=== PATIENT | male | born 1935 | race Hispanic/Latino ===

== ENCOUNTER 2017-02-26 02:52 | Emergency (ER) | payer MEDICARE, OTHER ==
--- NOTE | 2017-02-26 03:08 | ED PDOC ---
Arrival/HPI - General Chief Complaint: Male Genitourinary Time Seen by Provider: 02/26/17 03:02 Historian: Patient - History of Present Illness Narrative History of Present Illness (Text): 02/26/17 03:05 Mendel Chery is an 81 year old male, whose past medical history includes bladder calculi, BPH, and hypertension, who presents to the ED complaining of urinary retention. Patient states he has been unable to void his urine since yesterday morning. Patient denies any abdominal pain, nausea, vomiting, dysuria , back pain, fever, chills, or any other complaints. PMD: Dr. Kang Symptom Onset: Gradual Symptom Course: Unchanged Activities at Onset: Rest, Light Context: Home Past Medical History - Provider Review Nursing Documentation Reviewed: Yes - Infectious Disease Hx of Infectious Diseases: None - Cardiac Hx Cardiac Disorders: Yes Hx Hypertension: Yes - Pulmonary Hx Respiratory Disorders: No - Neurological Hx Neurological Disorder: No - HEENT Hx HEENT Disorder: No - Renal Hx Renal Disorder: No - Endocrine/Metabolic Hx Endocrine Disorders: No - Hematological/Oncological Hx Blood Disorders: No - Integumentary Hx Dermatological Disorder: No - Musculoskeletal/Rheumatological Hx Musculoskeletal Disorders: No - Gastrointestinal Hx Gastrointestinal Disorders: No - Genitourinary/Gynecological Hx Genitourinary Disorders: Yes Hx Hematuria: Yes Hx Prostate Problems: Yes Other/Comment: bladder stones ---BPH - Psychiatric Hx Psychophysiologic Disorder: No Hx Substance Use: No - Surgical History Other/Comment: ingunial hernia repair---- multile cysto's - Anesthesia Hx Anesthesia Reactions: No Hx Malignant Hyperthermia: No - Suicidal Assessment Feels Threatened In Home Enviroment: No Family/Social History - Physician Review Nursing Documentation Reviewed: Yes Family/Social History: No Known Family HX Smoking Status: Never Smoked Hx Alcohol Use: Yes Hx Substance Use: No Allergies/Home Meds Allergies/Adverse Reactions: Allergies No Known Allergies Allergy (Verified 02/26/17 03:13) Home Medications: Home Meds Medication Instructions Recorded Confirmed Finasteride [Proscar] 5 mg PO DAILY 07/05/15 02/26/17 Potassium Citrate [Urocit-K] 15 meq PO BID 07/05/15 02/26/17 Beta-Carotene [Beta Carotene] 25,000 iu PO DAILY 02/26/17 02/26/17 Cyanocobalamin (Vitamin B-12) 500 mcg PO DAILY 02/26/17 02/26/17 [B-12] Tamsulosin HCl [Flomax] 0.4 mg PO DAILY 02/26/17 02/26/17 Valsartan/Hydrochlorothiazide 1 tab PO DAILY 02/26/17 02/26/17 [Valsartan-Hctz 160-25 mg Tab] Review of Systems - Physician Review All systems were reviewed & negative as marked: Yes - Review of Systems Constitutional: Normal. absent: Fevers Eyes: Normal ENT: Normal Respiratory: Normal. absent: SOB, Cough Cardiovascular: Normal. absent: Chest Pain Gastrointestinal: Normal. absent: Abdominal Pain, Diarrhea, Nausea, Vomiting Genitourinary Male: Urinary Output Changes (+urinary retention) Musculoskeletal: Normal. absent: Back Pain, Neck Pain Skin: Normal. absent: Rash Neurological: Normal. absent: Headache, Dizziness Endocrine: Normal Hemo/Lymphatic: Normal Psychiatric: Normal Physical Exam Vital Signs Reviewed: Yes Vital Signs Pulse Resp BP Pulse Ox 02/26/17 05:22 67 18 150/74 98 Temperature: Afebrile Blood Pressure: Normal Pulse: Regular Respiratory Rate: Normal Appearance: Positive for: Well-Appearing, Non-Toxic, Comfortable Pain Distress: None Mental Status: Positive for: Alert and Oriented X 3 - Systems Exam Head: Present: Atraumatic, Normocephalic Pupils: Present: PERRL Extroacular Muscles: Present: EOMI Conjunctiva: Present: Normal Mouth: Present: Moist Mucous Membranes Neck: Present: Normal Range of Motion Respiratory/Chest: Present: Clear to Auscultation, Good Air Exchange. No: Respiratory Distress, Accessory Muscle Use Cardiovascular: Present: Regular Rate and Rhythm, Normal S1, S2. No: Murmurs Abdomen: Present: Normal Bowel Sounds. No: Tenderness, Distention, Peritoneal Signs Upper Extremity: Present: Normal Inspection. No: Cyanosis, Edema Lower Extremity: Present: Normal Inspection. No: Edema Neurological: Present: GCS=15, CN II-XII Intact, Speech Normal Skin: Present: Warm, Dry, Normal Color. No: Rashes Psychiatric: Present: Alert, Oriented x 3, Normal Insight, Normal Concentration Medical Decision Making ED Course and Treatment: 02/26/17 03:05 Impression: 81 y/o male c/o urinary retention. Differential Diagnosis included but are not limited to: urinary retention Plan: -- Vicente placement -- Reassess and disposition Progress Notes: 02/26/17 03:17 PROCEDURE: Vicente Catheter Placement Performed by the emergency provider Consent: Informed consent, after discussion of the risks, benefits, and alternatives to the procedure was obtained. Timeout: A timeout to verify the correct patient, procedure, and site was performed. Indication: Urinary retention Preparation: Hand hygiene performed. The area prepped and draped in the usual sterile fashion and was cleansed. Vicente Catheter Size: 16 [place] Post-procedure: The patient tolerated the procedure well with no immediate complications. Vicente draining urine without difficulty. - Scribe Statement The provider has reviewed the documentation as recorded by the Brian Sierra Provider Attestation: All medical record entries made by the Devenibcaleb were at my direction and personally dictated by me. I have reviewed the chart and agree that the record accurately reflects my personal performance of the history, physical exam, medical decision making, and the department course for this patient. I have also personally directed, reviewed, and agree with the discharge instructions and disposition. Disposition/Present on Arrival - Present on Arrival Any Indicators Present on Arrival: No History of DVT/PE: No History of Uncontrolled Diabetes: No Urinary Catheter: Yes History Surgical Site Infection Following: None - Disposition Have Diagnosis and Disposition been Completed?: Yes Diagnosis: Urinary retention Disposition: HOME/ ROUTINE Disposition Time: 04:40 Condition: GOOD Discharge Instructions (ExitCare): Urinary Retention in Men (ED) Additional Instructions: Mr. Chery, thank you for letting us take care of you today. You were treated for urinary retention. The emergency medical care you received today was directed at your acute symptoms. If you were prescribed any medication, please fill it and take as directed. It may take several days for your symptoms to resolve. Return to the Emergency Department if your symptoms worsen, do not improve, or if you have any other problems. Please contact your doctor or call one of the physicians/clinics you have been referred to that are listed on the Patient Visit Information form that is included in your discharge packet. Bring any paperwork you were given at discharge with you along with any medications you are taking to your follow up visit. Our treatment cannot replace ongoing medical care by a primary care provider (PCP) outside of the emergency department. Thank you for allowing the [facility] team to be part of your care today. If you had a blood, urine, or wound culture: It will take several days for the results, if any change in treatment is needed we will contact you. Prescriptions: Cephalexin [Keflex] 500 mg PO BID #14 capsule
[2017-02-26 03:10] VITALS: BMI 29.8
[2017-02-26 05:22] VITALS: BP 150/74; PULSE 67; RESP 18; O2SAT 98
== END 2017-02-26 05:22 | disposition home or self-care (01) ==
LOC: ED 02:52
DX: R33.9 Retention of urine, unspecified (principal)

== ENCOUNTER 2017-08-22 15:20 | Emergency (ER) | payer MEDICARE, OTHER ==
[2017-08-22 15:21] VITALS: BMI 29.8
[2017-08-22 15:30] VITALS: TEMP 97.7
[2017-08-22] MEDS ORDERED: Sodium Chloride 0.9% 1,000 ML IV STA (15:43)
--- NOTE | 2017-08-22 15:47 | ED PDOC ---
Arrival/HPI - General Chief Complaint: GI Problem Time Seen by Provider: 08/22/17 15:22 Historian: Patient - History of Present Illness Time/Duration: Other (4 days) Symptom Onset: Gradual Symptom Course: Unchanged Severity Level: Mild Activities at Onset: Rest Associated Symptoms (Text): 08/22/17 15:44 4 days prior to arrival patient reports that he ate a meal of hot dogs and sausage out at a restaurant. Following this he lost his appetite became nauseous intermittent vomiting with no diarrhea. He had some right upper quadrant pain which has since resolved. No fever or chills. No cough congestion or URI. No injury or trauma. There is poor by mouth intake. No chest pain palpitations or dyspnea. He has never experienced this previously Past Medical History - Infectious Disease Hx of Infectious Diseases: None - Cardiac Hx Cardiac Disorders: Yes Hx Hypertension: Yes - Pulmonary Hx Respiratory Disorders: No - Neurological Hx Neurological Disorder: No - HEENT Hx HEENT Disorder: No - Renal Hx Renal Disorder: No - Endocrine/Metabolic Hx Endocrine Disorders: No - Hematological/Oncological Hx Blood Disorders: No - Integumentary Hx Dermatological Disorder: No - Musculoskeletal/Rheumatological Hx Musculoskeletal Disorders: No - Gastrointestinal Hx Gastrointestinal Disorders: No - Genitourinary/Gynecological Hx Genitourinary Disorders: Yes Hx Hematuria: Yes Hx Prostate Problems: Yes Other/Comment: bladder stones ---BPH - Psychiatric Hx Psychophysiologic Disorder: No Hx Substance Use: No - Surgical History Other/Comment: ingunial hernia repair---- multile cysto's - Anesthesia Hx Anesthesia Reactions: No Hx Malignant Hyperthermia: No - Suicidal Assessment Feels Threatened In Home Enviroment: No Family/Social History - Physician Review Nursing Documentation Reviewed: Yes Family/Social History: Unknown Family HX Smoking Status: Never Smoked Hx Alcohol Use: Yes Hx Substance Use: No Allergies/Home Meds Allergies/Adverse Reactions: Allergies No Known Allergies Allergy (Verified 02/26/17 03:13) Home Medications: Home Meds Medication Instructions Recorded Confirmed Finasteride [Proscar] 5 mg PO DAILY 07/05/15 08/22/17 Potassium Citrate [Urocit-K] 15 meq PO BID 07/05/15 08/22/17 Beta-Carotene [Beta Carotene] 25,000 iu PO DAILY 02/26/17 08/22/17 Cyanocobalamin (Vitamin B-12) 500 mcg PO DAILY 02/26/17 08/22/17 [B-12] Tamsulosin HCl [Flomax] 0.4 mg PO DAILY 02/26/17 08/22/17 Valsartan/Hydrochlorothiazide 1 tab PO DAILY 02/26/17 08/22/17 [Valsartan-Hctz 160-25 mg Tab] Review of Systems - Physician Review All systems were reviewed & negative as marked: Yes - Review of Systems Constitutional: Fatigue Respiratory: Normal. absent: SOB, Cough Cardiovascular: Normal. absent: Chest Pain, Palpitations, Syncope Gastrointestinal: Abdominal Pain, Nausea, Vomiting, Anorexia. absent: Constipation, Diarrhea Genitourinary Male: absent: Dysuria, Frequency, Hematuria Neurological: absent: Headache, Dizziness, Focal Weakness Physical Exam Vital Signs Temp Pulse Resp BP Pulse Ox 08/22/17 19:47 80 16 152/80 H 98 08/22/17 19:07 76 16 171/102 H 99 08/22/17 17:30 76 18 130/73 97 08/22/17 15:26 97.7 F 83 18 142/84 97 Temperature: Afebrile Blood Pressure: Normal Pulse: Regular Respiratory Rate: Normal Appearance: Positive for: Well-Appearing, Non-Toxic, Comfortable Pain Distress: None Mental Status: Positive for: Alert and Oriented X 3 - Systems Exam Head: Present: Atraumatic, Normocephalic Pupils: Present: PERRL Extroacular Muscles: Present: EOMI Conjunctiva: Present: Normal Mouth: Present: Moist Mucous Membranes Pharnyx: No: ERYTHEMA, EXUDATE, TONSILS ENLARGED Neck: Present: Normal Range of Motion Respiratory/Chest: Present: Clear to Auscultation, Good Air Exchange, Decreased Breath Sounds. No: Respiratory Distress, Accessory Muscle Use Cardiovascular: Present: Regular Rate and Rhythm, Normal S1, S2. No: Murmurs Abdomen: Present: Normal Bowel Sounds. No: Tenderness, Distention, Peritoneal Signs, Rebound, Guarding Upper Extremity: Present: Normal Inspection. No: Cyanosis, Edema Lower Extremity: Present: Normal Inspection. No: Edema Neurological: Present: GCS=15, CN II-XII Intact, Speech Normal, Motor Func Grossly Intact Skin: Present: Warm, Dry, Normal Color. No: Rashes Psychiatric: Present: Alert, Oriented x 3, Normal Insight, Normal Concentration Medical Decision Making ED Course and Treatment: 08/22/17 17:23 Symptoms improved after Zofran and IV fluids. 08/22/17 17:34 Patient is still pointing to the right side of his abdomen as to where the discomfort is. His abdomen remains soft and nontender with no guarding and no rebound. He does have a slight leukocytosis with nausea, and therefore CT scan of the abdomen and pelvis will be obtained to rule out appendicitis. 08/22/17 19:15 EKG shows normal sinus rhythm rate approximately [address] or T-wave changes 08/22/17 19:23 Discussed in detail with who will see the patient in his office in 2 days in the afternoon. He requests antibiotics and pain medication. Follow up in the ER as needed. 08/22/17 20:56 Ultrasound was unrevealing. No hydronephrosis or stones seen. CT scan of the abdomen and pelvis is read by the radiologist shows a 7 x 7 mm ureteral stone with obstruction. No mention of degree of hydronephrosis. - Lab Interpretations Lab Results: 08/22/17 16:13 08/22/17 16:13 Lab Results 08/22/17 16:13: Sodium 137, Potassium 3.7, Chloride 99, Carbon Dioxide 30, Anion Gap 13, BUN 27 H, Creatinine 1.4, Est GFR ( Amer) 59, Est GFR (Non- Af Amer) 49, Random Glucose 246 H, Calcium 9.1, Total Bilirubin 1.3, AST 19, ALT 31, Alkaline Phosphatase 69, Lactate Dehydrogenase 475, Total Creatine Kinase 70, Troponin I 0.04, Total Protein 7.5, Albumin 4.1, Globulin 3.4, Albumin/Globulin Ratio 1.2, Amylase 47, Lipase 55 08/22/17 16:13: Urine Color Yellow, Urine Appearance Sl cloudy, Urine pH 6.0, Ur Specific [place] >= 1.030, Urine Protein 100 H, Urine Glucose (UA) >=1000, Urine Ketones Negative, Urine Blood Moderate H, Urine Nitrate Negative, Urine Bilirubin Negative, Urine Urobilinogen 1.0 H, Ur Leukocyte Esterase Negative, Urine RBC 5 - 10, Urine WBC 0 - 2, Ur Epithelial Cells 1 - 3, Urine Bacteria Rare 08/22/17 16:13: PT 13.4 H, INR 1.22 H, APTT 27.2 08/22/17 16:13: WBC 12.9 H D, RBC 5.09, Hgb 15.7, Hct 45.8, MCV 90.0, MCH 30.8, MCHC 34.3, RDW 13.8, Plt Count 154, MPV 9.7, Gran % 84.0 H, Lymph % (Auto) 7.4 L , [place] % (Auto) 8.3 H, Eos % (Auto) 0.2 L, Baso % (Auto) 0.1, Gran # 10.85 H, Lymph # 1.0 L, [place] # 1.1 H, Eos # 0.0, Baso # 0.01 - RAD Interpretation Radiology Orders: 08/22/17 15:43 CHEST PORTABLE [RAD] Stat ABDOMEN COMPLETE [US] Stat 08/22/17 17:24 ABD & PELVIS W/O PO OR IV CONT [CT] Stat Chest one view shows no infiltrate effusion or cardiomegaly. 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 - Medication Orders Current Medication Orders: Discontinued Medications Sodium Chloride (Sodium Chloride 0.9%) 1,000 mls @ 100 mls/hr IV .Q10H STA Stop: 08/23/17 01:42 Last Admin: 08/22/17 16:15 Dose: 100 mls/hr eMAR Start Stop Document 08/22/17 16:15 [facility] (Rec: 08/22/17 16:15 [facility] [id number]) Intravenous Solution Start Date 08/22/17 Start Time 16:15 Ondansetron HCl (Zofran Inj) 4 mg IVP STAT STA Stop: 08/22/17 15:44 Last Admin: 08/22/17 16:15 Dose: 4 mg IVP Administration Document 08/22/17 16:15 [facility] (Rec: 08/22/17 16:15 [facility] [id number]) Charges for Administration # of IVP Administrations 1 Disposition/Present on Arrival - Present on Arrival Any Indicators Present on Arrival: No History of DVT/PE: No History of Uncontrolled Diabetes: No Urinary Catheter: Yes History of Decub. Ulcer: No History Surgical Site Infection Following: None - Disposition Have Diagnosis and Disposition been Completed?: Yes Diagnosis: Renal colic, Ureterolithiasis, Leukocytosis, Hematuria Disposition: HOME/ ROUTINE Disposition Time: 19:24 Patient Plan: Discharge Condition: GOOD Discharge Instructions (ExitCare): Renal Colic (ED) Additional Instructions: 's office Thursday08/24/2017. Follow-up in the ER as needed. Prescriptions: Sulfamethoxazole/Trimethoprim [Bactrim DS 800 mg-160 mg] 1 tab PO BID #20 tab oxyCODONE/Acetaminophen [Percocet 5/325 mg Tab] 1 ea PO Q6 #15 tab Ondansetron [Zofran Odt] 4 mg SL Q6 #20 odt Forms: [employer] (Lao)
[2017-08-22 16:41] LABS: BASO # 0.01 K/mm3 (0.0-2.0); BASO % 0.1 % (0.0-3.0); EOS % 0.2 % (1.5-5.0); GRAN # 10.85 (1.4-6.5); HEMATOCRIT 45.8 % (42.0-52.0); LYMPH % 7.4 % (22.0-35.0); MEAN CORPUSCULAR HEMOGLOBIN 30.8 pg (25.0-35.0); MEAN CORPUSCULAR HGB CONC 34.3 g/dl (31.0-37.0); MEAN PLATELET VOLUME 9.7 fl (7.0-11.0); MONO # 1.1 (0.1-0.6); MONO % 8.3 % (1.0-6.0); RED CELL DISTRIBUTION WIDTH 13.8 % (11.5-14.5); WHITE BLOOD COUNT 12.9 10^3/ul (4.5-11.0)
--- NOTE | 2017-08-22 16:42 | RAD ---
HISTORY: ap COMPARISON: 06/09/2015 FINDINGS: LUNGS: No active pulmonary disease. PLEURA: No significant pleural effusion identified, no pneumothorax apparent. CARDIOVASCULAR: Normal. OSSEOUS STRUCTURES: No significant abnormalities. VISUALIZED UPPER ABDOMEN: Normal. OTHER FINDINGS: None. IMPRESSION: No active disease.
[2017-08-22 16:44] LABS: URINE BILIRUBIN NEGATIVE (NEGATIVE); URINE BLOOD MODERATE (NEGATIVE); URINE GLUCOSE (UA) >=1000 mg/dL (NEGATIVE); URINE KETONE NEGATIVE (NEGATIVE); URINE LEUKOCYTE ESTERASE NEGATIVE Leu/uL (NEGATIVE); URINE PROTEIN 100 mg/dL (<30 mg/dL)
[2017-08-22 16:48] LABS: URINE APPEARANCE SL CLOUDY (CLEAR); URINE COLOR YELLOW (YELLOW)
[2017-08-22 16:50] LABS: INR 1.22 (0.93-1.08); PARTIAL THROMBOPLASTIN TIME 27.2 Seconds (25.1-36.5)
[2017-08-22 16:54] LABS: ALB/GLOB RATIO 1.2 (1.1-1.8); BILIRUBIN,TOTAL 1.3 mg/dL (0.2-1.3); CALCIUM 9.1 mg/dL (8.4-10.5); POTASSIUM 3.7 mmol/L (3.6-5.0); TOTAL PROTEIN 7.5 g/dL (5.8-8.3)
[2017-08-22 17:02] LABS: URINE BACTERIA RARE (NEG); URINE WBC 0 - 2 /hpf (0-6)
[2017-08-22 17:05] LABS: TROPONIN I 0.04 ng/mL
--- NOTE | 2017-08-22 17:20 | US ---
HISTORY: ap COMPARISON: None. TECHNIQUE: Sonographic evaluation of the abdomen. FINDINGS: LIVER: Measures 15.6 cm. Diffusely increased echogenicity of the liver parenchyma. Consistent with fatty infiltration. No mass. Normal hepatopetal portal venous flow. Smooth contour. GALLBLADDER: Unremarkable. No gallstones. COMMON BILE DUCT: Measures 4 mm. No stones. No dilatation. PANCREAS: Poorly visualized due to overlying bowel gas RIGHT KIDNEY: Measures 14.5cm. Normal cortical echogenicity. Upper pole cortical cyst, 6.4 x 6.3 x 6.7 cm. Mid renal cortical cyst, 2.1 x 2.0 x 2.0 cm. Lower pole parapelvic cyst 2.6 x 2.9 x 3.4 cm. Lower pole cortical cyst, 3.3 x 2.6 x 4.0 cm. No solid mass. No calculus or hydronephrosis LEFT KIDNEY: Measures 13.8cm. Normal cortical echogenicity. Upper pole cortical cyst, 4.0 x 3.5 x 4.9 cm and 2nd upper pole cyst 2.4 x 2.6 x 2.8 cm. Mid left renal cortical cyst, 4.1 x 4.1 x 5.8 cm. No solid mass. No calculus or hydronephrosis. SPLEEN: Mild splenomegaly. The spleen measures 13.7 cm in greatest dimension. AORTA: Obscured by bowel gas IVC: Obscured by bowel gas OTHER FINDINGS: None. IMPRESSION: Multiple bilateral simple renal cortical cysts. Fatty infiltration of the liver. Mild splenomegaly.
--- NOTE | 2017-08-22 18:59 | CT ---
EXAM: CT Abdomen and Pelvis Without Intravenous Contrast EXAM DATE/TIME: 08/22/2017 5:24 PM CLINICAL HISTORY: 82 years old, male; Pain; Abdominal pain; Other: Right sided abd pain TECHNIQUE: Axial computed tomography images of the abdomen and pelvis without intravenous contrast. All CT scans at this facility use one or more dose reduction techniques, viz.: automated exposure control; ma/kV adjustment per patient size (including targeted exams where dose is matched to indication; i.e. head); or iterative reconstruction technique. MIP reconstructed images were created and reviewed. Coronal and sagittal reformatted images were created and reviewed. COMPARISON: US - ABDOMEN COMPLETE 2017-08-22 16:30; CT abdomen pelvis 06/09/15 unavailable FINDINGS: Lower thorax: The heart is mildly enlarged. There is a hiatal hernia. Lung bases are hyperinflated. There is atelectasis/scarring at the lung bases. There is minimal pleural thickening. ABDOMEN: Liver: There is fatty infiltration of the liver. Gallbladder and bile ducts: unremarkable Pancreas: Pancreas is mildly atrophic. Spleen: unremarkable Adrenals: There are small bilateral adrenal nodules. Kidneys and ureters: There are multiple left renal cysts.. There is an 8mm hyperdense left lower pole peripheral lesion possibly hyperdense cyst. Left kidney and ureter are otherwise unremarkable. There are multiple right renal cysts. There are multiple tiny hyperdense right renal lesions which have hyperdense cysts. There are multiple nonobstructing right lower pole renal stones. There is obstructive uropathy on the there is a 7 x 7 mm obstructing right ureteral stone at the L4/L5 segmental level. Ureter distal to the stone is unremarkable. Stomach and bowel: Stomach is almost empty. Rotation is normal. There are mildly dilated air-filled small bowel loops in the left upper quadrant and left midabdomen. Distention increases distally. There is no small bowel obstruction. Ileocecal region is unremarkable. Appendix and terminal ileum are unremarkable.Streak and motion limits evaluation of the colon. There is diverticulosis. Appendix: See stomach and bowel PELVIS: Bladder: Bladder is partially distended. There is mild bladder wall thickening and trabeculation. There is a small stone in the dependent portion of the bladder on the left. There are small stones in the dependent/posterior bladder diverticula Reproductive: Prostate is enlarged. Seminal vesicles are unremarkable. ABDOMEN and PELVIS: Intraperitoneal space: There is a small amount of free fluid in the pelvis. There is no free air. Bones/joints: Bony structures are osteopenic.There are degenerative changes in the osseus structures. Disc disease is greatest at L4/L5. Soft tissues: There are bilateral fat-containing inguinal hernias. Vasculature: There are vascular calcifications. Lymph nodes: There is shotty adenopathy. IMPRESSION: 7 x 7 mm obstructing right ureteral stone at the L4/L5 segmental level, nonobstructing right lower pole renal stones; multiple bilateral renal cysts end probable bilateral tiny hyperdense cysts; fatty liver, mild pancreatic atrophy; small bilateral adrenal nodules most likely adenomas number; bladder wall thickening and trabeculation with diverticula and bladder stones; enlarged prostate; free fluid in the pelvis etiology unknown; no CT findings of appendicitis or diverticulitis; probable mild ileus Additional findings as described above.
[2017-08-22 19:07] VITALS: RESP 16
[2017-08-22 19:51] VITALS: BP 152/80; PULSE 80; O2SAT 98
--- NOTE | 2017-08-23 14:56 | CARD ---
APPROVED REPORT EKG Measurement Heart [id number] <Conclusion> Normal sinus rhythm Normal ECG
== END 2017-08-22 19:47 | disposition home or self-care (01) ==
LOC: ED 15:20
DX: N20.1 Calculus of ureter (principal); D72.829 Elevated white blood cell count, unspecified; R31.9 Hematuria, unspecified; I10 Essential (primary) hypertension
CPT/HCPCS: 71010; 74176; 76700; 80053; 81001; 82150; 82550; 83615; 83690; 84484; 85025; 85610; 85730; 87086; 93005; 96374; 99284; J2405; J7040

== ENCOUNTER 2017-08-25 09:06 | Inpatient (IN) | payer MEDICARE, OTHER ==
[2017-08-25 09:07] VITALS: BMI 29.8
[2017-08-25] MEDS ORDERED: Sodium Chloride 0.9% 1,000 ML IV STA (09:30)
[2017-08-25 10:08] LABS: BASO # 0.01 K/mm3 (0.0-2.0); BASO % 0.1 % (0.0-3.0); EOS % 0.4 % (1.5-5.0); GRAN # 6.23 (1.4-6.5); GRAN % 79.7 % (50.0-68.0); HEMATOCRIT 43.5 % (42.0-52.0); LYMPH # 0.8 (1.2-3.4); LYMPH % 10.8 % (22.0-35.0); MEAN CELL VOLUME 89.7 fl (80.0-105.0); MEAN CORPUSCULAR HEMOGLOBIN 30.5 pg (25.0-35.0); MEAN PLATELET VOLUME 9.4 fl (7.0-11.0); MONO # 0.7 (0.1-0.6); RED CELL DISTRIBUTION WIDTH 13.7 % (11.5-14.5); WHITE BLOOD COUNT 7.8 10^3/ul (4.5-11.0)
--- NOTE | 2017-08-25 10:08 | ED PDOC ---
Arrival/HPI - General Chief Complaint: Weakness/Neurological Deficit Time Seen by Provider: 08/25/17 09:08 Historian: Patient - History of Present Illness Narrative History of Present Illness (Text): 08/25/17 10:05 82yo male who present with complaint of positional dizziness and decreased appetite . He was seen here on the for abdominal pain, vomiting. Abdominal US and CT was negative with lab work. States he came to ED for a repeat blood work. He states he has been having dizziness for a while now, but it only became worse today. Dizziness is described as a spinning sensation whenever he stands up. He denies nausea, vomiting, diarrhea, tinnitus, focal weakness, headache, visual changes, chest pain, SOB, any other complaint. Past Medical History - Provider Review Nursing Documentation Reviewed: Yes - Infectious Disease Hx of Infectious Diseases: None - Cardiac Hx Cardiac Disorders: Yes Hx Hypertension: Yes - Pulmonary Hx Respiratory Disorders: No - Neurological Hx Neurological Disorder: No - HEENT Hx HEENT Disorder: No - Renal Hx Renal Disorder: No - Endocrine/Metabolic Hx Endocrine Disorders: No - Hematological/Oncological Hx Blood Disorders: No - Integumentary Hx Dermatological Disorder: No - Musculoskeletal/Rheumatological Hx Musculoskeletal Disorders: No - Gastrointestinal Hx Gastrointestinal Disorders: No - Genitourinary/Gynecological Hx Genitourinary Disorders: Yes Hx Hematuria: Yes Hx Prostate Problems: Yes Other/Comment: bladder stones ---BPH - Psychiatric Hx Psychophysiologic Disorder: No Hx Substance Use: No - Surgical History Other/Comment: ingunial hernia repair---- multile cysto's - Anesthesia Hx Anesthesia Reactions: No Hx Malignant Hyperthermia: No - Suicidal Assessment Feels Threatened In Home Enviroment: No Family/Social History - Physician Review Nursing Documentation Reviewed: Yes Family/Social History: Unknown Family HX Smoking Status: Never Smoked Hx Alcohol Use: Yes Hx Substance Use: No Allergies/Home Meds Allergies/Adverse Reactions: Allergies No Known Allergies Allergy (Verified 08/25/17 13:32) Home Medications: Home Meds Medication Instructions Recorded Confirmed Finasteride [Proscar] 5 mg PO DAILY 07/05/15 08/25/17 Potassium Citrate [Urocit-K] 15 meq PO BID 07/05/15 08/25/17 Beta-Carotene [Beta Carotene] 25,000 iu PO DAILY 02/26/17 08/25/17 Cyanocobalamin (Vitamin B-12) 500 mcg PO DAILY 02/26/17 08/25/17 [B-12] Tamsulosin HCl [Flomax] 0.4 mg PO DAILY 02/26/17 08/25/17 hydroCHLOROthiazide [Hydrodiuril] 25 mg PO DAILY 08/25/17 08/25/17 Review of Systems - Physician Review All systems were reviewed & negative as marked: Yes - Review of Systems Constitutional: Normal Eyes: Normal ENT: Normal Respiratory: Normal Cardiovascular: Normal Gastrointestinal: Normal Genitourinary Male: Normal Musculoskeletal: Normal Skin: Normal Neurological: Dizziness Endocrine: Normal Hemo/Lymphatic: Normal Psychiatric: Normal Physical Exam Vital Signs Reviewed: Yes Vital Signs Temp Pulse Resp BP Pulse Ox 08/25/17 13:24 98.1 F 60 16 161/79 H 99 08/25/17 12:25 59 L 18 154/83 H 98 08/25/17 11:04 58 L 16 168/85 H 97 08/25/17 09:17 98.7 F 67 16 156/80 H 98 Temperature: Afebrile Blood Pressure: Normal Pulse: Regular Respiratory Rate: Normal Appearance: Positive for: Well-Appearing, Non-Toxic, Comfortable Pain Distress: None Mental Status: Positive for: Alert and Oriented X 3 - Systems Exam Head: Present: Atraumatic, Normocephalic Pupils: Present: PERRL Extroacular Muscles: Present: EOMI Conjunctiva: Present: Normal Mouth: Present: Moist Mucous Membranes Neck: Present: Normal Range of Motion Respiratory/Chest: Present: Clear to Auscultation, Good Air Exchange. No: Respiratory Distress, Accessory Muscle Use Cardiovascular: Present: Regular Rate and Rhythm, Normal S1, S2. No: Murmurs Abdomen: Present: Normal Bowel Sounds. No: Tenderness, Distention, Peritoneal Signs Back: Present: Normal Inspection Upper Extremity: Present: Normal Inspection. No: Cyanosis, Edema Lower Extremity: Present: Normal Inspection. No: Edema Neurological: Present: GCS=15, CN II-XII Intact, Speech Normal, Motor Func Grossly Intact, Normal Sensory Function, Normal Cerebellar Funct, Norm Deep Tendon Reflexes, Gait Normal, Memory Normal, Normal 2Pt Descrimination, Other ( No focal neurological deficit) Skin: Present: Warm, Dry, Normal Color. No: Rashes Psychiatric: Present: Alert, Oriented x 3, Normal Insight, Normal Concentration Medical Decision Making ED Course and Treatment: 08/25/17 19:23 82yo male in ED for dizziness. EKG NSR with LVH @67bpm. Lab was nonspecific. Elevated BS was noted, previous lab from the also show elevated BS. PT denies history of diabetes and therefore is a new onset diabetic. Head Ct was negative for any acute finding. The daughter who was by the bedside expressed concern about the father's safety at home. Notes he lives alone with his disabled . Case was DW Dr. mojica and pt was admitted to [facility] for further evaluation of his dizziness and better glycemic control. - Lab Interpretations Lab Results: 08/25/17 09:52 08/25/17 09:52 Lab Results 08/25/17 10:00: Urine Color Yellow, Urine Appearance Clear, Urine pH 6.0, Ur Specific [place] 1.020, Urine Protein 30 H, Urine Glucose (UA) 500 H, Urine Ketones Negative, Urine Blood Large H, Urine Nitrate Negative, Urine Bilirubin Negative, Urine Urobilinogen 0.2, Ur Leukocyte Esterase Negative, Urine RBC 15 - 20, Urine WBC 2 - 5, Ur Epithelial Cells 0 - 2, Calcium Oxalate Crystal Occ, Urine Bacteria Few 08/25/17 09:52: Prostate Specific Ag 5.2 H 08/25/17 09:52: Sodium 137, Potassium 3.5 L, Chloride 100, Carbon Dioxide 29, Anion Gap 12, BUN 33 H, Creatinine 1.3, Est GFR ( Amer) > 60, Est GFR ( Non-Af Amer) 53, Random Glucose 228 H, Calcium 8.4, Magnesium 2.4 H, Total Bilirubin 1.0, AST 25, ALT 33, Alkaline Phosphatase 69, Lactate Dehydrogenase 433, Total Creatine Kinase 34 L, Troponin I 0.02 D, Total Protein 6.9, Albumin 3.6, Globulin 3.3, Albumin/Globulin Ratio 1.1, Lipase 135 08/25/17 09:52: PT 13.8 H, INR 1.25 H, APTT 25.0 L 08/25/17 09:52: WBC 7.8 D, RBC 4.85, Hgb 14.8, Hct 43.5, MCV 89.7, MCH 30.5, MCHC 34.0, RDW 13.7, Plt Count 150, MPV 9.4, Gran % 79.7 H, Lymph % (Auto) 10.8 L, [place] % (Auto) 9.0 H, Eos % (Auto) 0.4 L, Baso % (Auto) 0.1, Gran # 6.23, Lymph # 0.8 L, [place] # 0.7 H, Eos # 0.0, Baso # 0.01 - RAD Interpretation Radiology Orders: 08/25/17 09:29 HEAD W/O CONTRAST [CT] Stat - Medication Orders Current Medication Orders: Finasteride (Proscar) 5 mg PO DAILY PRASHANTH Hydrochlorothiazide (Hydrodiuril) 25 mg PO DAILY PRASHANTH Ceftriaxone Sodium (Rocephin 2 Gm Ivpb) 2 gm in 100 mls @ 100 mls/hr IVPB DAILY PRASHANTH PRN Reason: Protocol Oxycodone/Acetaminophen (Percocet 5/325 Mg Tab) 1 tab PO Q6 PRASHANTH Stop: 08/28/17 18:01 Tamsulosin HCl (Flomax) 0.4 mg PO DAILY PRASHANTH Discontinued Medications Sodium Chloride (Sodium Chloride 0.9%) 1,000 mls @ 999 mls/hr IV .Q1H1M STA Stop: 08/25/17 10:30 Last Admin: 08/25/17 09:53 Dose: 999 mls/hr eMAR Start Stop Document 08/25/17 09:53 MS (Rec: 08/25/17 09:54 MS [id number]) Intravenous Solution Start Date 08/25/17 Start Time 09:54 End Date 08/25/17 End time 10:54 Total Infusion Time 60 Insulin Human Regular (Humulin R) 3 units IV ONCE STA PRN Reason: Protocol Stop: 08/25/17 11:49 Last Admin: 08/25/17 12:15 Dose: 3 units eMAR Start Stop Document 08/25/17 12:15 MS (Rec: 08/25/17 12:19 MS [id number]) Intravenous Solution Start Date 08/25/17 Start Time 12:19 MAR Blood Glucose Document 08/25/17 12:15 MS (Rec: 08/25/17 12:19 MS [id number]) Blood Glucose Finger Stick Blood Glucose (70-120) 228 Meclizine HCl (Antivert) 25 mg PO STAT STA Stop: 08/25/17 09:32 Last Admin: 08/25/17 09:44 Dose: 25 mg Pneumococcal Polyvalent Vaccine (Pneumovax 23 Vaccine) 0.5 ml IM .ONCE ONE Stop: 08/25/17 15:37 Disposition/Present on Arrival - Present on Arrival Any Indicators Present on Arrival: No History of DVT/PE: No History of Uncontrolled Diabetes: No Urinary Catheter: Yes History of Decub. Ulcer: No History Surgical Site Infection Following: None - Disposition Have Diagnosis and Disposition been Completed?: Yes Diagnosis: Near syncope, Diabetes mellitus, new onset Disposition: HOSPITALIZED Disposition Time: 11:35 Patient Problems: Current Active Problems Problem Status Onset Diabetes mellitus, new onset Acute Near syncope Acute Condition: FAIR
[2017-08-25 10:16] LABS: ALB/GLOB RATIO 1.1 (1.1-1.8); ALKALINE PHOSPHATASE 69 U/L (38-126); ALT/SGPT 33 U/L (7-56); AST/SGOT 25 U/L (17-59); BLOOD UREA NITROGEN 33 mg/dL (7-21); CALCIUM 8.4 mg/dL (8.4-10.5); CARBON DIOXIDE 29 mmol/L (21-33); CHLORIDE 100 mmol/L (98-107); GFR AFRICAN-AMERICAN > 60; GLUCOSE,RANDOM 228 mg/dL (70-110); INR 1.25 (0.93-1.08); LIPASE 135 U/L (23-300); MAGNESIUM 2.4 mg/dL (1.7-2.2); POTASSIUM 3.5 mmol/L (3.6-5.0); SODIUM 137 mmol/L (132-148); TOTAL PROTEIN 6.9 g/dL (5.8-8.3)
[2017-08-25 10:26] LABS: TROPONIN I 0.02 ng/mL
[2017-08-25 10:26] LABS: URINE BILIRUBIN NEGATIVE (NEGATIVE); URINE BLOOD LARGE (NEGATIVE); URINE GLUCOSE (UA) 500 mg/dL (NEGATIVE); URINE KETONE NEGATIVE (NEGATIVE); URINE LEUKOCYTE ESTERASE NEGATIVE Leu/uL (NEGATIVE); URINE PROTEIN 30 mg/dL (<30 mg/dL); URINE UROBILINOGEN 0.2 E.U./dL (<1 E.U./dL)
[2017-08-25 10:29] LABS: URINE COLOR YELLOW (YELLOW)
--- NOTE | 2017-08-25 10:36 | CT ---
PROCEDURE: CT HEAD WITHOUT CONTRAST. HISTORY: dizziness COMPARISON: None available. TECHNIQUE: Axial computed tomography images were obtained through the head/brain without intravenous contrast. Radiation dose: Total exam DLP = 726 mGy-cm. This CT exam was performed using one or more of the following dose reduction techniques: Automated exposure control, adjustment of the mA and/or kV according to patient size, and/or use of iterative reconstruction technique. FINDINGS: HEMORRHAGE: No intracranial hemorrhage. BRAIN: No mass effect or edema. No atrophy or chronic microvascular ischemic changes. VENTRICLES: Unremarkable. No hydrocephalus. CALVARIUM: Unremarkable. PARANASAL SINUSES: Unremarkable as visualized. No significant inflammatory changes. MASTOID AIR CELLS: Unremarkable as visualized. No inflammatory changes. OTHER FINDINGS: None. IMPRESSION: No acute findings
[2017-08-25 10:41] LABS: URINE APPEARANCE CLEAR (CLEAR); URINE BACTERIA FEW (NEG); URINE CALCIUM OXALATE CRYSTALS OCC /hpf; URINE EPITHELIAL CELLS 0 - 2 /hpf (0-5); URINE RBC 15 - 20 /hpf (0-2)
[2017-08-25] MEDS ORDERED: Insulin Regular 1 UNITS/0.01 ML ML IV STA (11:48)
[2017-08-25] MEDS ORDERED: Influenza Vaccine 60 mcg/0.5 mL SYR (4YR UP) IM ONE (15:36)
[2017-08-25] MEDS ORDERED: Pneumococcal 23-Valent Vaccine IM ONE (15:36)
[2017-08-25] MEDS: cefTRIAXone 2 GM IN NS 2 GM/100 ML BAG IVPB SCH (20:17)
[2017-08-25] MEDS: Oxycodone/Acetaminophen 5/325 mg Tab PO SCH (21:17)
[2017-08-26] MEDS: Oxycodone/Acetaminophen 5/325 mg Tab PO SCH ×4 (00:21→20:56)
--- NOTE | 2017-08-26 00:24 | CON ---
GENITOURINARY CONSULTATION DATE: 08/25/2017 CHIEF COMPLAINT: Dizziness and spinning sensation. No nausea or vomiting. HISTORY OF PRESENT ILLNESS: The patient had a CAT scan done several days ago, which apparently showed an obstructing right ureteral calculus in the upper ureter with hydro. He currently has some very mild intermittent abdominal pain. No nausea or vomiting. No fever. No chills. He appears comfortable. His white count is normal and he is afebrile. The patient states he has not been eating for several days. PAST MEDICAL HISTORY: Hypertension, history of BPH with bladder stones, he has had a hernia repair, and multiple cystoscopies. SOCIAL HISTORY: He does not smoke. He does not use alcohol. FAMILY HISTORY: Noncontributory. ALLERGIES: HE HAS NO ALLERGIES. MEDICATIONS: At home, he is on Proscar, Urocit, Flomax, and HydroDIURIL. REVIEW OF SYSTEMS: Currently, no symptoms referable to the head, eyes, ears, nose and throat. No cardiac or respiratory symptoms. He appears comfortable with no GI symptoms at this time and no genitourinary symptoms. On questioning, he does have some occasional right-sided pain. No Psychiatric or Endocrine issues. He does have some dizziness. PHYSICAL EXAMINATION VITAL SIGNS: Shows him to be afebrile. Pulse 84, blood pressure 140/80, and respirations 20. HEENT: Normocephalic. Sclerae clear. Conjunctivae noninjected. CHEST: No CVA pain. No hepatosplenomegaly. ABDOMEN: No rebound or guarding. EXTREMITIES: No purpura edema. NEUROLOGIC: Alert and oriented x3. LABORATORY DATA: Shows a white count 7800, hemoglobin 14.8. Chemistry show a glucose of 170, creatinine 1.3 with a BUN of 33. His INR is 1.25. His urine has 2-5 WBCs and 15-20 RBCs. IMPRESSION: He has an obstructing upper ureteral calculus along with some non-obstructing calculi in the right kidney as well. The stone is on the right side. Given the history of not eating and being a diabetic, the patient should have a cystoscopy with stent placement to relieve the hydronephrosis and remove this as a possible cause of his symptoms, whether if this is the cause of his dizziness or not, I feel it has to be done to avoid the possibility of him becoming septic. He was put on 2 g of Rocephin. He will be kept n.p.o. after midnight. Dr. Kang, who has been seeing him in the office and was scheduled to see him tomorrow in the office and he is aware of the situation. I spoke with the family. I also spoke to Dr. Kang and he was calling the family as well to apprise them of what he intended to do tomorrow. Kevyn Naranjo MD
--- NOTE | 2017-08-26 00:34 | CON ---
DATE: 08/25/2017 REASON FOR CONSULTATION: Abdominal pain and vomiting. HISTORY OF PRESENT ILLNESS: This is an 82-year-old patient with past medical history of ureteric calculus, hypertension, hematuria, nephrolithiasis, presented with episodes of dizziness and nausea. The patient was in the ER about 3 days ago with abdominal pain and vomiting. The patient had an abdominal ultrasound and the CAT scan done. The patient found to have ureteric stone and the patient was discharged to be followed as an outpatient. The patient also complaints of episodes of nausea, vomiting before. GI consult was requested to evaluate. Denies any fever. OTHER PAST MEDICAL HISTORY: Significant as above. FAMILY HISTORY: Noncontributory. SOCIAL HISTORY: Denies smoking. Alcohol socially. REVIEW OF SYSTEMS: Positive as above. Main complaint is dizziness. PHYSICAL EXAMINATION: GENERAL: On examination, the patient is lying on the bed, not in acute distress. VITAL SIGNS: Temperature 98.1, blood pressure 161/71, pulse 60, O2 saturation 99%, respiratory rate 16. HEENT: Atraumatic and anicteric. NECK: Supple. HEART: S1 and S2 heard. LUNGS: Bilateral air entry present. ABDOMEN: Soft. There is no mass palpable. No tenderness. EXTREMITIES: No edema. No cyanosis. NEUROLOGIC: Alert, oriented, moves all the extremities. LABORATORY DATA: Hemoglobin 14.8, hematocrit 43.5, WBC 7.5, platelets 150. Chemistry is essentially unremarkable. Creatinine 1.3 and BUN 33. IMPRESSION: This is an 82-year-old patient with recently in the hospital with nausea, vomiting and abdominal discomfort and was found to have ureteric stone and the patient need to be worked up, had history of hematuria and kidney stones in the past. Plan to workup as an outpatient. Now presents with increased dizziness. Probably the likely cause for his symptoms could be related to the vertigo. GI symptoms, it is unclear should include peptic ulcer disease and gastroenteritis should be considered also a differential diagnosis. Ultrasound showed no stones. I would recommend empiric therapy with PPI. Soft diet. Other differential diagnosis also to include is the patient's diabetic could be gastroparesis. I would recommend soft diet, empiric therapy with PPI. Continue with present IV hydration and continue with present management. Thank you very much for allowing us to participate in the care of the patient. Guerita Guerrier MD
--- NOTE | 2017-08-26 07:40 | CARD ---
APPROVED REPORT EKG Measurement Heart [id number] <Conclusion> Normal sinus rhythm Moderate voltage criteria for LVH STTW changes c/w ischemia
[2017-08-26] MEDS ORDERED: Lactated Ringer's 1,000 ML IV SCH (07:45)
--- NOTE | 2017-08-26 08:03 | CP.PCM.CON ---
<Lucy Hand - Last Filed: 08/26/17 13:50> History of Present Illness - History of Present Illness History of Present Illness: Heme/onc consult note for Dr Garcia. Reason for consult: weight loss Patient is an 82 y/o Ethiopian Male with pmh of htn, new onset diabetes, BPH, vertigo recurrent renal and ureteral calculus whom initially presented to [facility] [place] 2 weeks ago with abdominal pin, and was found to have renal stones which was supposed to be managed as outpatient. Patient presented on 08/25/17 with dizziness and abdominal pain, along with nausea. Patient's abdominal pain was believed be be due to obstructing right ureteral calculus and is s/p cystoscopy and stent placement this morning. For the dizziness patient had normal Ct head, patient believes the dizziness is due to his longstanding vertigo. Heme/onc is being consulted due to weight loss. Upon interviewing patient, patient states he has been having issues with weight gain, especially in his abdominal region. States he had decreased appetite for 5 days due to the abdominal pain, however currently he feels like eating everything. Patient denies night sweats, fever, chills, no nausea at this moment. Denies vomiting, diarrhea, headache. Admits to dizziness when he turns his head abruptly. Denies cp, or sob. Denies any family history of cancer. PMH: htn, new onset diabetes, recurrent nephrolithiasis, dizziness, and BPH. PSH: Cystoscopy. FMH: Mom at age of 82 from urosepsis, dad at age of 83 from asthma complications, brother struggles with asthma/pneumonia, no family history of cancers. Social: no history of tobacco or illicit drug use. Used to drink wine occasionally, but nothing in the past few years. Ambulates unassisted, lives with his . Allergy: NKDA Home meds: please see EMR for full list. Review of Systems - Constitutional Constitutional: absent: Anorexia, Chills, Fatigue, Fever, Frequent Falls, Headache, Increased Appetite, Lethargy, Malaise, Night Sweats, Weight Loss, Weakness - EENT Eyes: absent: Blurred Vision Ears: Dizziness - Cardiovascular Cardiovascular: absent: Chest Pain, Chest Pain at Rest, Claudication, Diaphoresis, Dyspnea - Respiratory Respiratory: absent: Cough, Dyspnea, Hemoptysis, Dyspnea on Exertion, Wheezing, Snoring, Stridor - Gastrointestinal Gastrointestinal: absent: Abdominal Pain, Belching, Bloating, Constipation, Cramping, Diarrhea, Dysphagia, Excessive Flatus, Fecal Incontinence, Hematemesis , Hematochezia, Loose Stools, Nausea, Vomiting - Genitourinary Genitourinary: Hematuria. absent: Nocturia, Urinary Incontinence, Urinary Urgency - Musculoskeletal Musculoskeletal: absent: Arthralgias, Muscle Weakness, Stiffness - Integumentary Integumentary: absent: Acne, Pruritus, Rash - Neurological Neurological: Disequilibrium, Dizziness. absent: Abnormal Hearing, Confusion, Focal Weakness - Psychiatric Psychiatric: absent: Anxiety, Confusion - Endocrine Endocrine: Polydipsia, Polyphagia, Polyuria. absent: Fatigue, Palpitations - Hematologic/Lymphatic Hematologic: absent: Easy Bleeding Past Patient History - Infectious Disease Hx of Infectious Diseases: None - Tetanus Immunizations Tetanus Immunization: Unknown - Past Social History Smoking Status: Never Smoked Alcohol: None Drugs: Denies Home Situation {Lives}: With Family - CARDIAC Hx Cardiac Disorders: Yes Hx Hypertension: Yes - PULMONARY Hx Respiratory Disorders: No - NEUROLOGICAL Hx Neurological Disorder: No - HEENT Hx HEENT Problems: No - RENAL Hx Chronic Kidney Disease: No - ENDOCRINE/METABOLIC Hx Endocrine Disorders: No - HEMATOLOGICAL/ONCOLOGICAL Hx Blood Disorders: No - INTEGUMENTARY Hx Dermatological Problems: No - MUSCULOSKELETAL/RHEUMATOLOGICAL Hx Musculoskeletal Disorders: No - GASTROINTESTINAL Hx Gastrointestinal Disorders: No - GENITOURINARY/GYNECOLOGICAL Hx Genitourinary Disorders: Yes Hx Hematuria: Yes Hx Prostate Problems: Yes Other/Comment: bladder stones ---BPH - PSYCHIATRIC Hx Psychophysiologic Disorder: No Hx Substance Use: No - SURGICAL HISTORY Hx Surgeries: Yes - ANESTHESIA Hx Anesthesia Reactions: No Hx Malignant Hyperthermia: No Meds Home Medications: Home Medication List Medication Instructions Recorded Confirmed Type Blood Sugar Diagnostic [Blood 1 each MC TID 30 Days strip 08/27/17 Rx Glucose Test] Blood-Glucose Meter [Blood Glucose 1 each MC ONCE #1 each 08/27/17 Rx Meter] Ciprofloxacin [Cipro] 250 mg PO BID 4 Days #8 tab 08/27/17 Rx MetFORMIN [glucoPHAGE] 1,000 mg PO DAILY 30 Days tab 08/27/17 Rx Allergies/Adverse Reactions: Allergies Allergy/AdvReac Type Severity Reaction Status Date / Time No Known Allergies Allergy Verified 08/25/17 13:32 - Medications Medications: Current Medications Finasteride (Proscar) 5 mg PO DAILY [facility] Last Admin: 08/25/17 20:16 Dose: 5 mg Hydrochlorothiazide (Hydrodiuril) 25 mg PO DAILY [facility] Last Admin: 08/25/17 20:16 Dose: 25 mg Ceftriaxone Sodium (Rocephin 2 Gm Ivpb) 2 gm in 100 mls @ 100 mls/hr IVPB DAILY [facility] PRN Reason: Protocol Last Admin: 08/25/17 20:17 Dose: 100 mls/hr Lactated Ringer's (Lactated Ringer's) 1,000 mls @ 75 mls/hr IV .[id number] [facility] Stop: 08/26/17 09:46 Oxycodone/Acetaminophen (Percocet 5/325 Mg Tab) 1 tab PO Q6 [facility] Stop: 08/28/17 18:01 Last Admin: 08/26/17 00:21 Dose: Not Given Tamsulosin HCl (Flomax) 0.4 mg PO DAILY [facility] Last Admin: 08/25/17 20:17 Dose: 0.4 mg Physical Exam - Constitutional Appears: No Acute Distress, Younger Than Stated Age - Head Exam Head Exam: ATRAUMATIC, NORMAL INSPECTION, NORMOCEPHALIC - Eye Exam Eye Exam: EOMI, Normal appearance, PERRL. absent: Scleral icterus Pupil Exam: NORMAL ACCOMODATION, PERRL - ENT Exam ENT Exam: Mucous Membranes Moist, Normal Exam - Neck Exam Neck exam: Positive for: Normal Inspection - Respiratory Exam Respiratory Exam: Clear to Auscultation Bilateral, NORMAL BREATHING PATTERN. absent: Rales, Rhonchi, Wheezes, Respiratory Distress, Stridor - Cardiovascular Exam Cardiovascular Exam: REGULAR RHYTHM, RRR, +S1, +S2. absent: Bradycardia, Tachycardia, Irregular Rhythm, Systolic Murmur - GI/Abdominal Exam GI & Abdominal Exam: Normal Bowel Sounds, Soft. absent: Distended, Firm, Guarding, Mass, Rigid, Tenderness Additional comments: Obese abdomen. - Extremities Exam Extremities exam: Positive for: normal inspection, pedal pulses present. Negative for: pedal edema, tenderness - Back Exam Back exam: NORMAL INSPECTION - Neurological Exam Neurological exam: Alert, Oriented x3, Reflexes Normal - Psychiatric Exam Psychiatric exam: Normal Affect, Normal Mood - Skin Skin Exam: Dry, Intact, Normal Color, Warm Results - Vital Signs Recent Vital Signs: Last Vital Signs Temp 98.3 F 08/26/17 06:26 Pulse 72 08/26/17 06:26 Resp 20 08/26/17 06:26 BP 136/70 08/26/17 06:26 Pulse Ox 98 08/26/17 06:26 - Labs Result Diagrams: 08/25/17 09:52 08/25/17 09:52 Labs: Laboratory Results - last 24 hr 08/25/17 08/25/17 15:51 21:47 POC Glucose (mg/dL) 170 H 310 H Assessment & Plan - Assessment and Plan (Free Text) Assessment: Patient is an 82 y/o Ethiopian Male with pmh of htn, new onset diabetes, BPH, vertigo recurrent renal and ureteral calculus admitted with vertigo and nephrolithiasis s/p cystoscopy and ureteral stent. Heme/onc is consulted for weight loss. Reviewed reports from patient's CT abdomen and pelvis from 08/22/17, patient had 7 x 7 mm obstructing right ureteral stone at the L4/L5 segmental level, nonobstructing right lower pole renal stones; multiple bilateral renal cysts end probable bilateral tiny hyperdense cysts; fatty liver, mild pancreatic atrophy; small bilateral adrenal nodules most likely adenomas number ; bladder wall thickening and trabeculation with diverticula and bladder stones ; enlarged prostate. Patient also had renal ultrasound from Multiple bilateral simple renal cysts. Multiple nonobstructing right lower pole renal calculi. Plan: - Transient loss of appetite likely due to abdominal pain from renal calculi. - Follow up with urology recommendations - No additional testing recommended at this time - No hematologic/oncology interventions at this time. - Thank you for consulting Dr Garcia. Patient seen, examined and case discussed with Dr Garcia. - Date & Time Date: 08/26/17 Time: 11:40 <Rhett Garcia P - Last Filed: 08/29/17 11:30> Results - Vital Signs Recent Vital Signs: Last Vital Signs Temp 98.8 F 08/27/17 06:00 Pulse 67 08/27/17 14:00 Resp 20 08/27/17 06:00 BP 138/76 08/27/17 06:00 Pulse Ox 97 08/27/17 06:00 - Labs Result Diagrams: 08/27/17 07:00 08/27/17 07:00 Attending/Attestation - Attestation I have personally seen and examined this patient.: Yes I have fully participated in the care of the patient.: Yes I have reviewed all pertinent clinical information: Yes
[2017-08-26] MEDS ORDERED: Iohexol 240 (50 ml) ONE (08:17)
[2017-08-26] MEDS ORDERED: cefTRIAXone (Rocephin) 1 gm Inj ONE (08:20)
[2017-08-26] MEDS ORDERED: Midazolam 2 MG/2 ML VIAL ONE (08:21)
[2017-08-26] MEDS ORDERED: Propofol 10 mg/ml Inj (20 ML) ONE (08:21)
--- NOTE | 2017-08-26 09:26 | RAD ---
PROCEDURE: Retrograde pyelogram HISTORY: STENT PLACEMENT COMPARISON: TECHNIQUE: Fluoroscopy was provided in the operating room. Eight images were submitted FINDINGS: The study shows placement of a right ureteral stent IMPRESSION: As above
--- NOTE | 2017-08-26 12:01 | HP ---
CHIEF COMPLAINT AND HISTORY OF PRESENT ILLNESS: This is an 82-year-old male who is coming into the hospital with decrease in appetite and dizziness. He was in the emergency room about 5 days ago. He had a CAT scan and blood work done, and he was discharged to follow with Dr. Naranjo. At that time, he had a stone that was seen. The patient continues to decline and came in yesterday for further evaluation. I spoke to the patient's daughter who updated me on the patient's condition. He has not been eating well. He has been complaining of abdominal pain. The patient had a history of nephrolithiasis, hypertension. He was taken to the OR by Dr. Naranjo and had a cystoscopy with a stent placement for obstructive uropathy. He is post-anesthesia, so I am not able to get full history. Most of the information was taken from the medical record and talking with the family. ALLERGIES: NO KNOWN DRUG ALLERGIES. HOME MEDICATIONS: Were reviewed on the [facility]. PAST MEDICAL HISTORY: Hypertension, BPH, nephrolithiasis. SOCIAL HISTORY: He does not smoke or use alcohol. FAMILY HISTORY: Noncontributory. PHYSICAL EXAMINATION: VITAL SIGNS: Temperature 98.5, pulse 64, blood pressure 119/63, O2 saturation 99%. Height is 5 feet 6 inches, weight is 185 pounds. BMI is 29.9. GENERAL: The patient lying in bed, uncomfortable, and in no acute distress. HEENT: Atraumatic and normocephalic. Anicteric sclerae. Moist mucosa. [place] conjunctivae. No oral lesions. NECK: No JVD, anterior and posterior adenopathy, thyromegaly, or bruits. CARDIOVASCULAR: S1 and S2 regular. No murmur, rubs, or gallop. LUNGS: Clear to auscultation bilaterally. No wheezes, rales, or rhonchi. ABDOMEN: Bowel sounds are positive. Soft, nontender and nondistended. No hepatosplenomegaly. No rebound and no guarding. EXTREMITIES: No cyanosis, clubbing, or edema. NEUROLOGIC: Unable to assess fully, but patient is able to move all 4 extremities. PSYCHIATRIC: Unable to assess the patient postop. GENITOURINARY: No CVA tenderness. VASCULAR: 2+ pulses in the carotid pulses and pedal pulses. SKIN: No erythema or nodules SPINE: Shows normal curvature. EXTREMITIES: No cyanosis and clubbing, no edema. LABORATORY DATA: White count is 7.8, hemoglobin is 14.8. Chemistry shows a sodium 137, potassium 3.5, creatinine is 1.3. INR is 1.25. Urine shows blood is large. Glucose is 500. The patient's CAT scan has been reviewed. ASSESSMENT: 1. Right kidney stone with obstruction. 2. Benign prostatic hyperplasia. 3. Abdominal pain. 4. Vomiting. 5. Hyperglycemia. PLAN: The patient is going to be admitted to the hospital. He is going to need physical therapy. I will also get a TCU evaluation. He is being followed by Dr. Lo, Dr. Garcia, Dr. Naranjo. The patient's family is asking about evaluation for malignancy. The patient is going to be on heart healthy diet. He is going to be on Percocet for pain. He is going to continue his Proscar. He is on Flomax for his BPH. We will continue to follow closely. Repeat blood work tomorrow. Drew Villalpando MD
[2017-08-26] MEDS ORDERED: POLYETHYLENE GLYCOL 3350 17 GM/Dose PACKET PO ONE (14:00)
--- NOTE | 2017-08-26 14:53 | CP.PCM.PN ---
<May Awad - Last Filed: 08/26/17 14:53> Subjective - Date & Time of Evaluation Date of Evaluation: 08/26/17 Time of Evaluation: 10:25 - Subjective Subjective: Seen and examined at the bedside earlier today, the patient is status post ureteral stent placement, patient family at bedside.. Patient denies nausea, vomiting, or abdominal pain. Abdomen is distended and reports feeling bloated, hasn't had a bowel movement for 3 days. Patient report passing gas. He tolerated food last night. No reports of overt GI bleed. Objective - Vital Signs/Intake and Output Vital Signs (last 24 hours): Temp Pulse Resp BP Pulse Ox 98.5 F 64 22 128/61 95 08/26/17 09:36 08/26/17 09:36 08/26/17 09:36 08/26/17 09:36 08/26/17 09:36 Intake and Output: 08/26/17 08/26/17 06:59 18:59 Intake Total 660 0 Output Total 500 Balance 160 0 - Medications Medications: Current Medications Finasteride (Proscar) 5 mg PO DAILY [facility] Last Admin: 08/26/17 10:16 Dose: 5 mg Hydrochlorothiazide (Hydrodiuril) 25 mg PO DAILY [facility] Last Admin: 08/26/17 10:16 Dose: 25 mg Ceftriaxone Sodium (Rocephin 2 Gm Ivpb) 2 gm in 100 mls @ 100 mls/hr IVPB DAILY [facility] PRN Reason: Protocol Last Admin: 08/25/17 20:17 Dose: 100 mls/hr Oxycodone/Acetaminophen (Percocet 5/325 Mg Tab) 1 tab PO Q6 [facility] Stop: 08/28/17 18:01 Last Admin: 08/26/17 12:00 Dose: 1 tab Tamsulosin HCl (Flomax) 0.4 mg PO DAILY [facility] Last Admin: 08/26/17 10:16 Dose: 0.4 mg - Labs Labs: PT 13.8 SECONDS (9.4-12.5) H 08/25/17 09:52 INR 1.25 (0.93-1.08) H 08/25/17 09:52 APTT 25.0 Seconds (25.1-36.5) L 08/25/17 09:52 - Constitutional Appears: No Acute Distress - Eye Exam Eye Exam: Normal appearance. absent: Scleral icterus - ENT Exam ENT Exam: Mucous Membranes Moist - Neck Exam Neck Exam: Normal Inspection - Respiratory Exam Respiratory Exam: NORMAL BREATHING PATTERN. absent: Respiratory Distress - Cardiovascular Exam Cardiovascular Exam: +S1, +S2 - GI/Abdominal Exam GI & Abdominal Exam: Distended, Soft, Normal Bowel Sounds. absent: Guarding, Tenderness, Organomegaly, Rebound - Extremities Exam Extremities Exam: absent: Calf Tenderness, Pedal Edema - Neurological Exam Neurological Exam: Alert, Awake, Oriented x3 - Skin Skin Exam: Dry, Warm Assessment and Plan - Assessment and Plan (Free Text) Assessment: Assessment: Abdominal pain now improved Nausea/vomiting, differentials to consider repeat peptic ulcer disease or gastroenteritis as differentials or gastroparesis Right kidney stone with obstruction, status post cystoscopy with ureteral stent placement History of BPH History of diabetes mellitus Constipation Plan: Diet as tolerated recommend soft low residual small meals Continue GI prophylaxis on PPI On IV hydration On IV antibiotics: ceftriaxone On Flomax Offered to give MiraLAX 1 dose, patient daughter at the bedside prefer patient to attempt to go naturally, discussion with family that MiraLAX is available if no BM this afternoon, spoke to nursing staff was at the bedside. Seen and discussed with Dr. Bello. <Guerita Guerrier V - Last Filed: 08/27/17 00:16> Objective - Vital Signs/Intake and Output Vital Signs (last 24 hours): Temp Pulse Resp BP Pulse Ox 97.5 F L 71 20 119/67 99 08/26/17 16:00 08/26/17 18:00 08/26/17 16:00 08/26/17 16:00 08/26/17 16:00 Intake and Output: 08/26/17 08/27/17 18:59 06:59 Intake Total 720 620 Balance 720 620 - Medications Medications: Current Medications Finasteride (Proscar) 5 mg PO DAILY [facility] Last Admin: 08/26/17 10:16 Dose: 5 mg Hydrochlorothiazide (Hydrodiuril) 25 mg PO DAILY [facility] Last Admin: 08/26/17 10:16 Dose: 25 mg Ceftriaxone Sodium (Rocephin 2 Gm Ivpb) 2 gm in 100 mls @ 100 mls/hr IVPB DAILY [facility] PRN Reason: Protocol Last Admin: 08/25/17 20:17 Dose: 100 mls/hr Insulin Human Regular (Humulin R Low) 0 units SC ACHS [facility] PRN Reason: Protocol Last Admin: 08/26/17 23:58 Dose: Not Given Metformin HCl (Glucophage) 1,000 mg PO DAILY [facility] Last Admin: 08/26/17 16:57 Dose: 1,000 mg Oxycodone/Acetaminophen (Percocet 5/325 Mg Tab) 1 tab PO Q6 [facility] Stop: 08/28/17 18:01 Last Admin: 08/26/17 20:56 Dose: Not Given Tamsulosin HCl (Flomax) 0.4 mg PO DAILY [facility] Last Admin: 08/26/17 10:16 Dose: 0.4 mg - Labs Labs: PT 13.8 SECONDS (9.4-12.5) H 08/25/17 09:52 INR 1.25 (0.93-1.08) H 08/25/17 09:52 APTT 25.0 Seconds (25.1-36.5) L 08/25/17 09:52 Attending/Attestation - Attestation I have personally seen and examined this patient.: Yes I have fully participated in the care of the patient.: Yes I have reviewed all pertinent clinical information, including history, physical exam and plan: Yes Notes (Text): this patient was seen and evaluated earlier. This is an addendum to the GE progress report dictated by Luz Elena Awad APN On examination abdomen soft nontender Status post cystoscopy and ureteric stent placement Tolerating diet Continue PPI Would consider EGD if the patient remains symptomatic of nausea and reduced by mouth intake 08/27/17 00:14
[2017-08-26] MEDS: Insulin Reg-LOW-Coverage SC SCH ×2 (16:55→23:58)
--- NOTE | 2017-08-26 18:52 | PN ---
DATE: 08/26/2017 The patient is status post placement of a right ureteral stent. He has been afebrile. Abdomen is benign. IMPRESSION AND PLAN: From a urologic standpoint, the patient can be discharged home if he is tolerating diet and is medically okay with regard to his nausea and vertigo. I would recommend the patient to be discharged home on oral antibiotics. He is to continue his tamsulosin and finasteride, and he should follow up with my office next week as he will need a procedure to remove the ureteral stone. Justin Kang MD
[2017-08-26 19:18] VITALS: RESP 20
[2017-08-27] MEDS: Oxycodone/Acetaminophen 5/325 mg Tab PO SCH ×3 (01:00→11:55)
[2017-08-27 07:26] LABS: ALKALINE PHOSPHATASE 56 U/L (38-126); ALT/SGPT 40 U/L (7-56); AST/SGOT 23 U/L (17-59); BILIRUBIN,TOTAL 0.6 mg/dL (0.2-1.3); BLOOD UREA NITROGEN 33 mg/dL (7-21); CALCIUM 8.2 mg/dL (8.4-10.5); CARBON DIOXIDE 29 mmol/L (21-33); CHLORIDE 101 mmol/L (98-107); GFR AFRICAN-AMERICAN > 60; GLUCOSE,RANDOM 195 mg/dL (70-110); POTASSIUM 3.3 mmol/L (3.6-5.0); SODIUM 136 mmol/L (132-148)
[2017-08-27 07:31] LABS: HEMATOCRIT 38.2 % (42.0-52.0); MEAN CELL VOLUME 89.9 fl (80.0-105.0); MEAN CORPUSCULAR HEMOGLOBIN 29.6 pg (25.0-35.0); MEAN PLATELET VOLUME 9.4 fl (7.0-11.0); RED CELL DISTRIBUTION WIDTH 13.9 % (11.5-14.5); WHITE BLOOD COUNT 5.4 10^3/ul (4.5-11.0)
[2017-08-27 07:48] VITALS: BP 138/76; TEMP 98.8; O2SAT 97
[2017-08-27] MEDS: Insulin Reg-LOW-Coverage SC SCH ×2 (08:16→11:55)
[2017-08-27] MEDS: cefTRIAXone 2 GM IN NS 2 GM/100 ML BAG IVPB SCH (10:28)
[2017-08-27] MEDS ORDERED: Potassium Chloride 20 mEq/15 ml LIQ UD PO STA (11:18)
[2017-08-27 14:10] VITALS: PULSE 67
--- NOTE | 2017-08-27 19:21 | PN ---
DATE: SUBJECTIVE: This patient was seen and evaluated earlier today. This patient is tolerating the diet, feels much better. PHYSICAL EXAMINATION: VITAL SIGNS: Temperature is 98.8, blood pressure 138/76, respirations 20 and O2 saturation 97%. HEENT: Atraumatic. Anicteric. NECK: Supple. HEART: S1 and S2 heard. LUNGS: Bilateral air entry present. ABDOMEN: Soft. There is no mass palpable, no tenderness. LABORATORY DATA: Hemoglobin 12.6, hematocrit 38.2, WBC 5.4 and platelets 147. Chemistry is essentially unremarkable except blood glucose and potassium 3.3, being supplemented. IMPRESSION: 1. This 82-year-old patient admitted with dizziness, nausea, vomiting, abdominal discomfort, status post ureteric stone status post stent placement. Clinically, feeling much improved. The patient's differential diagnosis of the abdominal discomfort should include gastroesophageal reflux disease, peptic ulcer disease, and gastroparesis. The patient is doing better now where they will continue the proton pump inhibitor. 2. Advance the diet to soft diet, chew well or a pureed diet. 3. The patient would benefit from the elective endoscopic evaluation. Thank you very much for allowing us to participate in the care of the patient. Guerita Guerrier MD
--- NOTE | 2017-08-28 04:54 | DS ---
HISTORY OF PRESENT ILLNESS: The patient is an 82-year-old seen and examined sitting in chair, complaining of feeling dizzy. He states he feels this like when he gets vertigo, otherwise he is doing well. PHYSICAL EXAMINATION: VITAL SIGNS: He is afebrile, pulse 57, respiration 20 and blood pressure 138/76. LUNGS: Bilateral fair airflow. No rhonchi or crackle. HEART: S1 and S2 audible. ABDOMEN: Soft and nontender. No rebound. No guarding. NEUROLOGIC: The patient is awake, alert, oriented, and communicative. Ambulatory. LABORATORY EXAMINATION: WBC 5.4, hemoglobin 12.6, hematocrit 38.2, and platelets 147. Chemistry: Sodium 136, potassium 3.3, chloride 101, CO of 29, BUN 33, creatinine 1.2 and blood sugar of 195. ASSESSMENT: 1. Status post right ureteral stent placement. 2. Urinary tract infection. 3. New onset [id number] diabetes. 4. Hypertension. 5. Chronic vertigo. 6. History of nephrolithiasis. 7. Benign prostatic hypertrophy. PLAN: Diabetic education is done. The patient is given prescription of metformin 500 twice a day. He is being given meclizine 25 mg, one dose stat. He was on Rocephin 2 g daily and that has been switched to Cipro 250 b.i.d. for 5 more days. He will follow up with PMD and he will follow with Dr. Naranjo for removal of stent later on. Luis Felipe Laurent MD
--- NOTE | 2017-08-28 08:16 | OP ---
PROCEDURE DATE: 08/26/2017 PREOPERATIVE DIAGNOSES: Right ureteral calculus and right hydronephrosis. POSTOPERATIVE DIAGNOSES: Right ureteral calculus and right hydronephrosis plus bladder stones. PROCEDURES: Cystoscopy, right retrograde pyelogram, insertion of right ureteral stent. ATTENDING SURGEON: Dr. Justin Kang. ANESTHESIA: General. SPECIMEN: There were none. DRAINS: A 6 x 26 right ureteral stent. COMPLICATIONS: None. OPERATIVE FINDINGS: After informed consent was obtained, the patient was taken to the operating room, placed on the operating table. Anesthesia was administered. The patient was placed in dorsal lithotomy position and prepped and draped in the usual sterile fashion. A 22-Mauritian cystoscope was placed in the patient's urethra and advanced proximally under direct vision until the bladder was entered. A full survey inspection of bladder was then performed, which revealed multiple small stones. There was few large diverticulum on the posterior wall grade 2 to 3 trabeculation. Both ureteral orifices were visualized and appeared within normal limits. Prostate was markedly enlarged and somewhat hypervascular. At this point, a Pollack catheter was introduced through the cystoscope and guided into the right ureteral orifice. When inside the orifice, contrast was instilled into the system during real-time fluoroscopy. There was a J hooking and dilatation of the distal ureter with an obstruction in the upper part of the distal ureter. Contrast could not be passed through this point. At this point, a Sensor wire was obtained. The Sensor wire was passed through the Pollack catheter into the right ureter. The wire was able to be advanced past the point of obstruction and the open-ended ureteral catheter was then able to be advanced over the wire. The wire was then removed and further contrast was instilled into the system. The mid and upper ureter were dilated. There was some moderate hydronephrosis. At this point, the wire was re-passed. It was guided up into the kidney under fluoroscopic guidance. The Pollack catheter was then removed. A 6 x 26 stent was then obtained. It was passed over the wire through the cystoscope and into the right ureter. The stent was advanced proximally under direct and fluoroscopic guidance until it was in the appropriate position. When the stent was then placed, the wire was removed. A coil was seen in the kidney on fluoroscopy. A coil was seen in the bladder on cystoscopy. At this point, the procedure was completed. The bladder was drained. The cystoscope was removed. The patient tolerated the procedure well and was taken to the recovery room awake in stable condition. Justin Kang MD
== END 2017-08-27 14:24 | disposition home or self-care (01) | DRG 694 ==
LOC: ED 09:06 → ERH 11:43 → 3RNO 13:48
PROVIDERS: ADMIT Internal Medicine Nephrology; ATTEND Internal Medicine Nephrology
PROC: 0T768DZ Dilation of Right Ureter with Intraluminal Device, Via Natural or Artificial Opening Endoscopic (ICD-10-PCS; principal; 2017-08-26 07:30)
DX: N13.2 Hydronephrosis with renal and ureteral calculous obstruction (principal); E11.65 Type 2 diabetes mellitus with hyperglycemia; K76.0 Fatty (change of) liver, not elsewhere classified; R42 Dizziness and giddiness; N39.0 Urinary tract infection, site not specified; I10 Essential (primary) hypertension; K59.00 Constipation, unspecified; N21.0 Calculus in bladder; N40.0 Benign prostatic hyperplasia without lower urinary tract symptoms; N28.1 Cyst of kidney, acquired; K86.89 Other specified diseases of pancreas; D35.02 Benign neoplasm of left adrenal gland; D35.01 Benign neoplasm of right adrenal gland; N32.3 Diverticulum of bladder; Z79.84 Long term (current) use of oral hypoglycemic drugs; Z79.899 Other long term (current) drug therapy; Z87.442 Personal history of urinary calculi

== ENCOUNTER 2017-12-21 07:14 | Day surgery (SDC) | payer MEDICARE, OTHER ==
[2017-12-21 08:07] VITALS: BMI 29.8
[2017-12-21] MEDS ORDERED: Iohexol 240 (50 ml) ONE (09:34)
[2017-12-21] MEDS ORDERED: cefTRIAXone (Rocephin) 1 gm Inj ONE (09:34)
[2017-12-21] MEDS ORDERED: Propofol 10 mg/ml Inj (20 ML) ONE (09:46)
[2017-12-21] MEDS ORDERED: ePHEDrine 50 mg/ml Inj ONE (10:27)
[2017-12-21] MEDS ORDERED: HYDROmorphone 0.5 mg/0.5 ml ISec IVP PRN (11:01)
[2017-12-21 11:19] VITALS: TEMP 97.6
[2017-12-21 12:30] VITALS: RESP 18
--- NOTE | 2017-12-21 12:46 | RAD ---
PROCEDURE: Fluoroscopy up to 1 hour HISTORY: REMOVAL OF STENT, INSERTION OF STENT, CYSTOSCOPY COMPARISON: TECHNIQUE: Fluoroscopy was provided in the operating room. 71.3 seconds of fluoro time were used. Three images were provided FINDINGS: There is opacification of the right renal collecting system and ureter. There is no obvious filling defect. IMPRESSION: As above
[2017-12-21 13:12] VITALS: BP 180/86; PULSE 64; O2SAT 100
--- NOTE | 2017-12-22 08:43 | OP ---
PROCEDURE DATE: 12/21/2017 PREOPERATIVE DIAGNOSIS: Right ureteral calculus. POSTOPERATIVE DIAGNOSES: 1. Right ureteral calculus. 2. Bladder calculi. PROCEDURES: Cystoscopy, removal of right ureteral stent, right retrograde pyelogram, right ureteroscopy, basket extraction of right ureteral calculus and insertion of a right ureteral stent. ATTENDING SURGEON: Justin Kang MD. ANESTHESIA: General. SPECIMENS: Ureteral calculus sent to pathology. DRAIN: A 6 x 26 right ureteral stent. COMPLICATIONS: There were none. OPERATIVE FINDINGS: After informed consent was obtained, the patient was taken to the operating room, placed on the operating table. Anesthesia was administered. The patient was then placed in the dorsal lithotomy position and prepped and draped in the usual sterile fashion. A 22-Sinhala cystoscope was placed in the patient's urethra, advanced proximally under direct vision until the bladder was entered. A full survey inspection of bladder was then performed, which revealed multiple small bladder stones. There was a ureteral stent noted exiting from the right ureteral orifice. The bladder had grade 2 to 3 trabeculation with multiple diverticulum and cellules. Prostate was markedly enlarged and occlusive appearing in nature. There were no papillary bladder tumors noted. The stent exiting from the right orifice was moderately encrusted. There was moderate bullous inflammation of the right ureteral orifice. At this point, a sensor wire was obtained. The sensor wire was passed through the cystoscope and multiple attempts were made to angle it into the right ureteral orifice. After multiple attempts, a Oreilly catheter was obtained. The [place]illy catheter was then passed and using the [place] catheter, the wire was able to be angled into the right ureteral orifice. The wire was then passed under fluoroscopic guidance up the ureter alongside the stent until it coiled in the upper collecting system. The cystoscope was then removed and repassed. A grasping forceps was passed. Using the grasping forceps, the encrustations were broken off of the distal limb of the stent. The end of the stent was then grasped and withdrawn through the urethral meatus. The upper limb of the stent was noted to uncoil and the stent was able to be removed and pulled out from the meatus without difficulty. The stent was examined and appeared to be intact. At this point, a semi-rigid ureteroscope was obtained. The ureteroscope was then passed under direct vision into the bladder and guided into the right ureteral orifice. Approximately 2 cm above the orifice, a large yellow moore calculus was noted. The ureter was markedly dilated. The scope was able to be easily passed beyond the calculus and advanced proximally until the upper ureter. There was some tortuosity in the upper ureter. The stent could not easily be passed beyond this point, although the ureter was dilated. At this point, the ureteroscope was then withdrawn. A stone basket was then obtained. The stone basket was then passed through the ureteroscope. The previously mentioned stone was then able to be ensnared in the basket and withdrawn with the ureteroscope. The stone was sent to pathology as a specimen. At this point, the cystoscope was repassed while back loading guidewire. The open-ended ureteral catheter was able to be passed and retrograde pyelogram was performed. The ureter was markedly dilated. There was some likely small debris noted with no large filling defects. There was some mild fullness of the renal pelvis. The ureteral catheter was then withdrawn and on drainage films, contrast was noted to be draining from the kidney down the ureter into the bladder without difficulty. Given the debris and edema, decision was made to pass a ureteral stent. The cystoscope again was repassed, the wire was replaced and a 6 x 26 stent was then passed through the cystoscope over the wire into the right ureter. The stent was advanced proximally under direct and fluoroscopic guidance until it was in at the appropriate position. When the stent was in position, the guidewire was removed. A coil was seen in the kidney on fluoroscopy. A coil was seen in bladder on cystoscopy. The string was left on the stent to facilitate removal which will be done this week in the office. The patient received intravenous antibiotics prior to start of the procedure. The patient tolerated the procedure well. The small bladder calculi were able to be irrigated out of the bladder. There was some mild bleeding noted from the enlarged prostate. At this point, the procedure was completed. The bladder was drained. The cystoscope was removed. The patient tolerated the procedure well and was returned to the supine position and taken to the recovery room awake in stable condition. Justin Kang MD [facility] # [id number]
== END 2017-12-21 13:40 | disposition home or self-care (01) ==
LOC: SDS 07:14
PROVIDERS: ATTEND Urology
DX: N13.2 Hydronephrosis with renal and ureteral calculous obstruction (principal); N21.0 Calculus in bladder; N32.3 Diverticulum of bladder; I10 Essential (primary) hypertension
CPT/HCPCS: 52332; 52352; 76000; 88300; C1887; C2625; J0696; J1170; J2704; J3010; J7120; Q9966